=== PATIENT | male | born 1960 | race Caucasian/White ===

== ENCOUNTER 2022-05-14 09:29 | Outpatient (CLI) | payer BC, SELFPAY ==
--- NOTE | 2022-05-14 09:45 | CRLHL7_ITS ---
For Patients: As a result of the Century Cures Act, medical imaging exams and procedure reports are released immediately into your electronic medical record. You may view this report before your referring provider. If you have questions, please contact your health care provider. INDICATION: renovascular hypertension TECHNIQUE: Grayscale, color Doppler and power Doppler evaluation of both kidneys. COMPARISON: None available FINDINGS: BILATERAL RENAL ARTERY DUPLEX ULTRASOUND ABDOMINAL AORTA: Peak systolic velocity = 93 cm/s. No aortic aneurysm. RIGHT KIDNEY: 11.9 cm in length. There is no hydronephrosis. Simple cyst inferior pole right kidney measuring 2.4 cm. Peak systolic velocity = 110 cm/second Renal artery to aortic peak systolic velocity ratio = 1.2 Resistive indices: 0.7 Renal vein = patent LEFT KIDNEY: 13.2 cm in length. There is no hydronephrosis. Renal cortical thinning. Peak systolic velocity = 173 cm/second Renal artery to aortic peak systolic velocity ratio = 1.9 Resistive indices: 0.7 Renal vein = patent IMPRESSION: No evidence of significant renal artery stenosis. Dictated by Andrew Brown MD @ 05/14/2022 12:39:21 PM (Electronically Signed)
== END 2022-05-14 09:30 | disposition home or self-care (01) ==
PROVIDERS: PCP Family Medicine; Visit Provider Internal Medicine
DX: I15.0 Renovascular hypertension (principal)
CPT/HCPCS: 76775; 93975